=== PATIENT | male | born 1955 | race African-American/Black ===

== ENCOUNTER 2020-11-07 08:10 | Emergency (ER) | payer MEDICARE, MEDICAID ==
[~2020-11-07] VITALS: Ht 180.3 cm; Wt 90.0 kg
[2020-11-07 08:46] LABS: BASOPHILS % 0.8 % (0.0-2.0); EOSINOPHILS % 1.6 % (0.0-5.0); HEMATOCRIT. 38.3 % (42.0-52.0); LYMPHOCYTES % 25.1 % (20.0-50.0); MEAN CORPUSCULAR HEMOGLOBIN 32.8 pg (28.0-32.0); MEAN CORPUSCULAR VOLUME 104.6 fL (80.0-94.0); MEAN PLATELET VOLUME 10.1 fl (7.4-10.4); MONOCYTES % 14.5 % (2.0-8.0); PLATELET 200 x1000/uL (130-400); RED BLOOD CELL COUNT 3.66 mill/uL (4.7-6.1)
[2020-11-07 08:53] LABS: CHLORIDE 113 mEq/L (98-107)
[2020-11-07 08:59] LABS: INR 1.1; PROTHROMBIN TIME 11.8 sec (9.6-11.0)
[2020-11-07 09:00] LABS: C REACTIVE PROTEIN QUANT 5.6 mg/L (0.0-3.0); ETHANOL BLOOD < 10 mg/dL
[2020-11-07 09:02] LABS: CREATINE KINASE 38 IU/L (39-308)
[2020-11-07] MEDS ORDERED: FUROSEMIDE 40MG/4ML VIAL IVP NR (09:30)
[2020-11-07] MEDS ORDERED: DILTIAZEM HCL 5MG/ML 5ML VIAL IV NR (09:30)
[2020-11-07] MEDS ORDERED: ASPIRIN 325MG EC TABLET PO NR (09:30)
[2020-11-07 10:25] LABS: CLARITY URINE CLOUDY (CLEAR); COLOR URINE DARK YELLOW (YELLOW); KETONES URINE TRACE (NEGATIVE); LEUKOCYTE ESTERASE URINE NEGATIVE (NEGATIVE); NITRITE URINE NEGATIVE (NEGATIVE); OCCULT BLOOD URINE TRACE (NEGATIVE); PH URINE 5.5 (4.5-8.0); PROTEIN URINE 4+ (NEGATIVE); SPECIFIC GRAVITY URINE 1.031 (1.005-1.030)
[2020-11-07 10:43] LABS: BG BASE EXCESS -4.4 mmol/L (-2.0-2.0); BG CARBOXYHEMOGLOBIN 0.6 % (0.5-1.5); BG DEOXYHEMOGLOBIN 0.5 % (0.0-5.0); BG FRACTION INSPIRED OXYGEN 32; BG HCO3 ACT 17.9 mmol/L (22.0-26.0); BG METHEMOGLOBIN 0.2 % (0.0-1.5); BG OXYGEN SATURATION 99.5 % (92.0-98.5); BG OXYHEMOGLOBIN 98.7 % (94.0-97.0); BG PCO2 25.6 mmHg (35.0-45.0); BG PH 7.463 (7.350-7.450); BG SAMPLE SITE RIGHT RADIAL; BG TOTAL HEMOGLOBIN 12.4 g/dL (12.0-18.0); BG VENT MODE NASAL CANNULA
[2020-11-07 13:15] VITALS: BP 100/75
== END 2020-11-07 14:39 | disposition short-term general hospital (02) ==
LOC: ER 08:10
DX: E87.70 Fluid overload, unspecified (principal); I11.0 Hypertensive heart disease with heart failure; E87.2 Acidosis; I50.9 Heart failure, unspecified; F17.200 Nicotine dependence, unspecified, uncomplicated; E11.9 Type 2 diabetes mellitus without complications; Z98.890 Other specified postprocedural states; Z20.822 Contact with and (suspected) exposure to COVID-19
CPT/HCPCS: 36415; 36600; 71045; 80053; 80320; 81003; 82375; 82550; 82728; 82805; 82962; 83605; 83615; 83690; 83880; 84145; 84484; 85025; 85384; 85610; 86140; 87040; 87086; 87426; 93005; 96374; 96375; 99291; J1940; J3490; 99285; G0480

== ENCOUNTER 2021-02-16 11:12 | Inpatient (IN) | payer OTHER, MEDICAID ==
[~2021-02-16] VITALS: Ht 170.2 cm; Wt 71.2 kg
[2021-02-16 12:26] LABS: BASOPHILS % 0.9 % (0.0-2.0); EOSINOPHILS % 1.4 % (0.0-5.0); HEMATOCRIT. 42.4 % (42.0-52.0); HEMOGLOBIN. 13.6 g/dL (14.0-18.0); LYMPHOCYTES % 19.7 % (20.0-50.0); MEAN CORPUSCULAR HEMOGLOBIN 33.2 pg (28.0-32.0); MEAN CORPUSCULAR VOLUME 103.6 fL (80.0-94.0); MEAN PLATELET VOLUME 9.9 fl (7.4-10.4); MONOCYTES % 8.5 % (2.0-8.0); NEUTROPHILS % 69.5 % (40.0-76.0); PLATELET 245 x1000/uL (130-400); RED BLOOD CELL COUNT 4.09 mill/uL (4.7-6.1); RED CELL DISTRIBUTION WIDTH 15.7 % (11.6-14.6)
[2021-02-16 12:35] LABS: CHLORIDE 112 mEq/L (98-107)
[2021-02-16] MEDS ORDERED: FUROSEMIDE 40MG/4ML VIAL IVP ONE (13:00)
[2021-02-16] MEDS: ZOLPIDEM TARTRATE 5MG TABLET PO PRN (21:52)
[2021-02-17] MEDS ORDERED: ONDANSETRON HCL 4MG/2ML INJ IV PRN (09:45)
[2021-02-17] MEDS ORDERED: ACETAMINOPHEN 325MG TABLET PO PRN (09:45)
[2021-02-17] MEDS: SPIRONOLACTONE 25MG TABLET PO SCH (10:49)
[2021-02-17] MEDS: METOPROLOL TARTRATE 25MG TABLET PO SCH ×2 (10:50→21:45)
[2021-02-17] MEDS: ENOXAPARIN 80MG/0.8ML SYR SUBCUT SCH ×2 (10:55→21:47)
[2021-02-17] MEDS ORDERED: DEXTROSE 50% WATER 50ML SYRINGE IV PRN (16:45)
[2021-02-17] MEDS ORDERED: DILTIAZEM HCL 5MG/ML 5ML VIAL IV NR (17:00)
[2021-02-17] MEDS ORDERED: FUROSEMIDE 40MG/4ML VIAL IVP SCH (17:00)
[2021-02-17] MEDS ORDERED: METHYLPREDNISOLONE SOD SUCC 40 MG/ML VIAL IV NR (17:00)
[2021-02-17] MEDS ORDERED: IPRATROPIUM BROMIDE (0.02%) 0.5MG/2.5ML NEB HHN PRN (17:00)
[2021-02-17] MEDS: INSULIN LISPRO 100 UNITS/ML SUBCUT SCH ×3 (17:00→21:00)
[2021-02-17] MEDS: FUROSEMIDE 40MG/4ML VIAL IVP SCH (17:10)
[2021-02-17 20:00] VITALS: BP 138/96
[2021-02-17] MEDS: BLOOD SUGAR DIAGNOSTIC STRIP TEST SCH (21:46)
[2021-02-17] MEDS: ZOLPIDEM TARTRATE 5MG TABLET PO PRN (22:32)
[2021-02-17 23:33] VITALS: BP 138/96
[2021-02-18 04:00] VITALS: BP 130/62
[2021-02-18] MEDS: BLOOD SUGAR DIAGNOSTIC STRIP TEST SCH ×2 (06:08→12:18)
[2021-02-18] MEDS: FUROSEMIDE 40MG/4ML VIAL IVP SCH ×2 (06:08→18:00)
[2021-02-18] MEDS: INSULIN LISPRO 100 UNITS/ML SUBCUT SCH ×2 (06:11→12:18)
[2021-02-18 07:20] LABS: INR 1.3; PROTHROMBIN TIME 13.8 sec (9.6-11.0)
[2021-02-18 08:00] VITALS: BP 112/79
[2021-02-18] MEDS: METOPROLOL TARTRATE 25MG TABLET PO SCH ×2 (08:37→20:04)
[2021-02-18] MEDS: SPIRONOLACTONE 25MG TABLET PO SCH (08:37)
[2021-02-18] MEDS: ENOXAPARIN 80MG/0.8ML SYR SUBCUT SCH ×2 (08:37→20:04)
[2021-02-18] MEDS ORDERED: HYDROCODONE/ACETAMINOPHEN 10/325MG TABLET PO PRN (09:00)
[2021-02-18 12:00] VITALS: BP 112/84
[2021-02-18 16:00] VITALS: BP 111/84
[2021-02-18] MEDS ORDERED: IPRA4AER INH (16:35)
[2021-02-18] MEDS ORDERED: LISI-186 MT (16:36)
[2021-02-18] MEDS ORDERED: SPIR25TA6 MT (16:38)
[2021-02-18] MEDS ORDERED: APIX5TAB PO (16:38)
[2021-02-18] MEDS ORDERED: FURO40TA5 MT (16:40)
[2021-02-18] MEDS ORDERED: COLC0.6C3 MT (16:41)
[2021-02-18] MEDS ORDERED: LOPHC2 MT (16:42)
[2021-02-18] MEDS ORDERED: ALLO100T MT (16:48)
[2021-02-18] MEDS ORDERED: VIT1TABL62 PO (16:48)
[2021-02-18] MEDS ORDERED: MET5 MT (16:48)
[2021-02-18] MEDS ORDERED: LIDO35.44 TP (16:49)
[2021-02-18] MEDS ORDERED: SPIRONOLACTONE 5MG/ML 1ML ORAL SYR(NEO) PO SCH (17:00)
[2021-02-18] MEDS ORDERED: METOPROL MT SCH (17:00)
[2021-02-18] MEDS ORDERED: HYDROCHLOROTHIAZIDE MT SCH (17:00)
[2021-02-18] MEDS ORDERED: COLCHICINE MT SCH (17:00)
[2021-02-18] MEDS ORDERED: FUROSEMIDE 40MG TABLET PO SCH (17:00)
[2021-02-18] MEDS: ALLOPURINOL 100 MG TABLET PO SCH (17:15)
[2021-02-18] MEDS: COLCHICINE 0.6MG TABLET PO SCH (17:30)
[2021-02-18] MEDS ORDERED: IPRATROPIUM/ALBUTEROL 0.5-3(2.5)MG/3ML NEB HHN SCH (17:30)
[2021-02-18] MEDS: LISINOPRIL 5MG TABLET PO SCH (17:57)
[2021-02-18 20:00] VITALS: BP 119/77
[2021-02-18] MEDS: ZOLPIDEM TARTRATE 5MG TABLET PO PRN (23:10)
[2021-02-19] VITALS: BP 124/82
[2021-02-19 04:00] VITALS: BP 123/76
[2021-02-19] MEDS: FUROSEMIDE 40MG/4ML VIAL IVP SCH ×2 (05:41→17:48)
[2021-02-19 08:00] VITALS: BP 111/74
[2021-02-19] MEDS: COLCHICINE 0.6MG TABLET PO SCH (09:14)
[2021-02-19] MEDS: ENOXAPARIN 80MG/0.8ML SYR SUBCUT SCH (09:14)
[2021-02-19] MEDS: LISINOPRIL 5MG TABLET PO SCH (09:15)
[2021-02-19] MEDS: METOPROLOL TARTRATE 25MG TABLET PO SCH ×2 (09:15→20:28)
[2021-02-19] MEDS: ALLOPURINOL 100 MG TABLET PO SCH (09:15)
[2021-02-19] MEDS: SPIRONOLACTONE 25MG TABLET PO SCH (09:16)
[2021-02-19] MEDS ORDERED: NALOXONE HCL 0.4MG/ML VIAL IV PRN (11:45)
[2021-02-19 12:00] VITALS: BP 107/78
[2021-02-19 12:48] LABS: CHLORIDE 104 mEq/L (98-107)
[2021-02-19 16:00] VITALS: BP 109/79
[2021-02-19] MEDS: APIXABAN 5 MG TABLET PO SCH (17:48)
[2021-02-19 20:00] VITALS: BP 112/64
[2021-02-19] MEDS: ZOLPIDEM TARTRATE 5MG TABLET PO PRN (22:17)
[2021-02-20] VITALS: BP 105/74
[2021-02-20 04:00] VITALS: BP 91/57
[2021-02-20] MEDS: FUROSEMIDE 40MG/4ML VIAL IVP SCH ×2 (06:56→18:00)
[2021-02-20 08:00] VITALS: BP 115/79
[2021-02-20] MEDS: METOPROLOL TARTRATE 25MG TABLET PO SCH (11:55)
[2021-02-20] MEDS: APIXABAN 5 MG TABLET PO SCH ×2 (11:55→17:00)
[2021-02-20] MEDS: COLCHICINE 0.6MG TABLET PO SCH (11:55)
[2021-02-20] MEDS: ALLOPURINOL 100 MG TABLET PO SCH (11:55)
[2021-02-20] MEDS: SPIRONOLACTONE 25MG TABLET PO SCH (11:56)
[2021-02-20] MEDS: LISINOPRIL 5MG TABLET PO SCH (11:56)
[2021-02-20 12:00] VITALS: BP 115/73
[2021-02-20 16:00] VITALS: BP 124/87
[2021-02-20 17:25] VITALS: BP 115/73
== END 2021-02-20 20:34 | disposition home or self-care (01) | DRG 291 ==
LOC: ER 12:42 → MICUSO 14:10 → 8WST 02-17 07:30 → MICUSO 02-17 08:19 → 8WST 02-17 17:24
PROVIDERS: ADMIT Internal Medicine; ATTEND Internal Medicine
DX: I11.0 Hypertensive heart disease with heart failure (principal); J96.01 Acute respiratory failure with hypoxia; C90.00 Multiple myeloma not having achieved remission; E44.1 Mild protein-calorie malnutrition; D64.9 Anemia, unspecified; E11.9 Type 2 diabetes mellitus without complications; E87.8 Other disorders of electrolyte and fluid balance, not elsewhere classified; Z96.649 Presence of unspecified artificial hip joint; I50.82 Biventricular heart failure; Z20.822 Contact with and (suspected) exposure to COVID-19; I27.20 Pulmonary hypertension, unspecified; R07.89 Other chest pain; I50.23 Acute on chronic systolic (congestive) heart failure; F17.210 Nicotine dependence, cigarettes, uncomplicated; I16.0 Hypertensive urgency; I48.91 Unspecified atrial fibrillation; Z68.24 Body mass index [BMI] 24.0-24.9, adult; Z82.49 Family history of ischemic heart disease and other diseases of the circulatory system; Z83.3 Family history of diabetes mellitus
CPT/HCPCS: 36415; 71045; 80048; 80053; 82962; 83036; 83880; 84443; 84484; 85025; 87426; 93005; 93306; 97161; 99285; C1893; J1650; J1815; J1940; J2920; J3490

== ENCOUNTER 2021-03-20 06:04 | Inpatient (IN) | payer OTHER, MEDICAID ==
[~2021-03-20] VITALS: Ht 170.2 cm; Wt 66.7 kg
[~2021-03-20 06:04] MED LIST: ALLO100T MT; APIX5TAB PO; COLC0.6C3 MT; FURO40TA5 MT; IPRA4AER INH; LIDO35.44 TP; LISI-186 MT; LOPHC2 MT; METH-817 MT; SPIR25TA6 MT; VIT1TABL62 PO
[2021-03-20] MEDS ORDERED: NITROGLYCERIN OINT 1GM/INCH UDPKT TD ONE (06:30)
[2021-03-20] MEDS ORDERED: FUROSEMIDE 40MG/4ML VIAL IV ONE (06:30)
[2021-03-20] MEDS ORDERED: ASPIRIN 81MG TABLET PO ONE (06:30)
[2021-03-20 07:33] LABS: EOSINOPHILS % 0.8 % (0.0-5.0); HEMATOCRIT. 42.5 % (42.0-52.0); HEMOGLOBIN. 13.4 g/dL (14.0-18.0); LYMPHOCYTES % 18.3 % (20.0-50.0); MEAN CORPUSCULAR HEMOGLOBIN 32.6 pg (28.0-32.0); MEAN CORPUSCULAR VOLUME 103.1 fL (80.0-94.0); MEAN PLATELET VOLUME 9.8 fl (7.4-10.4); MONOCYTES % 8.7 % (2.0-8.0); NEUTROPHILS % 71.2 % (40.0-76.0); PLATELET 233 x1000/uL (130-400); RED BLOOD CELL COUNT 4.12 mill/uL (4.7-6.1); RED CELL DISTRIBUTION WIDTH 17.2 % (11.6-14.6)
[2021-03-20 07:36] LABS: CHLORIDE 111 mEq/L (98-107)
[2021-03-20 07:41] LABS: INR 1.6; PARTIAL THROMBOPLASTIN TIME 28.8 sec (23.4-31.0)
[2021-03-20] MEDS ORDERED: ONDANSETRON HCL 4MG/2ML INJ IV PRN (09:45)
[2021-03-20] MEDS ORDERED: ACETAMINOPHEN 325MG TABLET PO PRN (09:45)
[2021-03-20 10:55] LABS: *BENZODIAZEPINES SCREEN URINE NEGATIVE (NEGATIVE); *COCAINE SCREEN URINE NEGATIVE (NEGATIVE)
[2021-03-20 10:56] LABS: *AMPHETAMINES SCREEN URINE NEGATIVE (NEGATIVE); *BARBITURATES SCREEN URINE NEGATIVE (NEGATIVE); CANNABINOID URINE SCREEN PRESUMTIVE POSITIVE (NEGATIVE); METHADONE URINE SCREEN NEGATIVE (NEGATIVE); OPIATES URINE SCREEN NEGATIVE (NEGATIVE); PHENCYCLIDINE URINE SCREEN NEGATIVE (NEGATIVE)
[2021-03-20] MEDS ORDERED: ENOXAPARIN 80MG/0.8ML SYR SUBCUT SCH (11:30)
[2021-03-20] MEDS: FUROSEMIDE 40MG/4ML VIAL IVP SCH (17:46)
[2021-03-20] MEDS ORDERED: CARVEDILOL 12.5MG TABLET PO SCH (20:00)
[2021-03-20] MEDS: LOSARTAN POTASSIUM 50 MG TABLET PO SCH (20:58)
[2021-03-20 22:30] VITALS: BP 143/80
[2021-03-20] MEDS: ENOXAPARIN 80MG/0.8ML SYR SUBCUT SCH (22:53)
[2021-03-21] VITALS (7 sets, daily range): BP systolic 91–115; BP diastolic 55–82
[2021-03-21] MEDS: ZOLPIDEM TARTRATE 5MG TABLET PO PRN ×2 (00:15→23:15)
[2021-03-21] MEDS ORDERED: CARV6.2548 PO (03:40)
[2021-03-21 08:17] LABS: CHLORIDE 110 mEq/L (98-107)
[2021-03-21] MEDS: CARVEDILOL 12.5MG TABLET PO SCH ×2 (08:52→21:09)
[2021-03-21] MEDS: LOSARTAN POTASSIUM 50 MG TABLET PO SCH (08:52)
[2021-03-21] MEDS: ENOXAPARIN 80MG/0.8ML SYR SUBCUT SCH ×2 (08:53→21:09)
[2021-03-21] MEDS: FUROSEMIDE 40MG/4ML VIAL IVP SCH ×2 (08:53→16:26)
[2021-03-22] VITALS (7 sets, daily range): BP systolic 98–119; BP diastolic 62–78
[2021-03-22 07:08] LABS: CHLORIDE 107 mEq/L (98-107)
[2021-03-22] MEDS: CARVEDILOL 12.5MG TABLET PO SCH ×2 (08:57→20:08)
[2021-03-22] MEDS: LOSARTAN POTASSIUM 50 MG TABLET PO SCH (08:57)
[2021-03-22] MEDS: FUROSEMIDE 40MG/4ML VIAL IVP SCH ×2 (08:58→17:00)
[2021-03-22] MEDS: ENOXAPARIN 80MG/0.8ML SYR SUBCUT SCH ×2 (09:00→20:08)
[2021-03-22] MEDS ORDERED: FUROSEMIDE 40MG/4ML VIAL IVP NR (12:45)
[2021-03-22] MEDS: ZOLPIDEM TARTRATE 5MG TABLET PO PRN (20:09)
[2021-03-23] VITALS: BP 96/66
[2021-03-23 04:00] VITALS: BP 90/66
[2021-03-23 08:00] VITALS: BP 106/76
[2021-03-23] MEDS ORDERED: HYDROCODONE/ACETAMINOPHEN 5/325MG TABLET PO PRN (08:15)
[2021-03-23] MEDS: LOSARTAN POTASSIUM 50 MG TABLET PO SCH (08:35)
[2021-03-23] MEDS: CARVEDILOL 12.5MG TABLET PO SCH ×2 (08:35→20:25)
[2021-03-23] MEDS: PANTOPRAZOLE SODIUM 40 MG/VIAL IV SCH (09:30)
[2021-03-23] MEDS: FUROSEMIDE 40MG/4ML VIAL IVP SCH ×2 (09:30→18:44)
[2021-03-23] MEDS: ENOXAPARIN 80MG/0.8ML SYR SUBCUT SCH ×2 (09:30→20:24)
[2021-03-23 12:00] VITALS: BP 103/76
[2021-03-23] MEDS ORDERED: CARVEDILOL 12.5MG TABLET PO SCH (13:30)
[2021-03-23] MEDS: SPIRONOLACTONE 25MG TABLET PO SCH (15:43)
[2021-03-23 16:00] VITALS: BP 116/75
[2021-03-23 20:00] VITALS: BP 110/68
[2021-03-23 20:43] LABS: BASOPHILS % 0.8 % (0.0-2.0); EOSINOPHILS % 0.9 % (0.0-5.0); HEMATOCRIT. 37.9 % (42.0-52.0); HEMOGLOBIN. 12.6 g/dL (14.0-18.0); LYMPHOCYTES % 13.4 % (20.0-50.0); MEAN CORPUSCULAR HEMOGLOBIN 32.9 pg (28.0-32.0); MEAN CORPUSCULAR VOLUME 99.3 fL (80.0-94.0); MONOCYTES % 9.5 % (2.0-8.0); NEUTROPHILS % 75.4 % (40.0-76.0); PLATELET 235 x1000/uL (130-400); RED BLOOD CELL COUNT 3.81 mill/uL (4.7-6.1); RED CELL DISTRIBUTION WIDTH 16.5 % (11.6-14.6)
[2021-03-23 20:59] LABS: CHLORIDE 103 mEq/L (98-107)
[2021-03-23] MEDS: ZOLPIDEM TARTRATE 5MG TABLET PO PRN (22:58)
[2021-03-24] VITALS: BP 98/64
[2021-03-24 04:00] VITALS: BP 98/66
[2021-03-24] MEDS: FUROSEMIDE 40MG/4ML VIAL IVP SCH ×2 (05:44→17:04)
[2021-03-24 07:46] VITALS: BP 99/68
[2021-03-24] MEDS ORDERED: POTASSIUM CHLORIDE 20MEQ TABLET SR PO SCH (08:30)
[2021-03-24] MEDS: SPIRONOLACTONE 25MG TABLET PO SCH (08:35)
[2021-03-24] MEDS: CARVEDILOL 12.5MG TABLET PO SCH (08:35)
[2021-03-24] MEDS: ENOXAPARIN 80MG/0.8ML SYR SUBCUT SCH (09:18)
[2021-03-24] MEDS: PANTOPRAZOLE SODIUM 40 MG/VIAL IV SCH (09:49)
[2021-03-24 12:00] VITALS: BP 113/79
[2021-03-24 16:00] VITALS: BP 96/73
[2021-03-24] MEDS ORDERED: FUROSEMIDE 100MG/10ML VIAL IVP NR (17:15)
[2021-03-24] MEDS ORDERED: FURO40TA5 PO (19:41)
[2021-03-24 19:42] VITALS: BP 105/62
[2021-03-25] MEDS ORDERED: FAMOTIDINE 20MG TABLET PO SCH (09:00)
== END 2021-03-24 20:55 | disposition home or self-care (01) | DRG 291 ==
LOC: ER 06:04 → 7EST 08:11 → EDBEDREQSVC 15:06 → ENRESERV 20:32
PROVIDERS: ADMIT Internal Medicine; ATTEND Internal Medicine
DX: I11.0 Hypertensive heart disease with heart failure (principal); J96.01 Acute respiratory failure with hypoxia; N17.0 Acute kidney failure with tubular necrosis; C96.9 Malignant neoplasm of lymphoid, hematopoietic and related tissue, unspecified; I48.92 Unspecified atrial flutter; I50.23 Acute on chronic systolic (congestive) heart failure; I16.0 Hypertensive urgency; I42.9 Cardiomyopathy, unspecified; I48.91 Unspecified atrial fibrillation; D64.9 Anemia, unspecified; I50.82 Biventricular heart failure; E87.5 Hyperkalemia; E11.9 Type 2 diabetes mellitus without complications; F12.90 Cannabis use, unspecified, uncomplicated; Z20.822 Contact with and (suspected) exposure to COVID-19; Z83.3 Family history of diabetes mellitus; Z82.49 Family history of ischemic heart disease and other diseases of the circulatory system; Z92.21 Personal history of antineoplastic chemotherapy; Z79.899 Other long term (current) drug therapy
CPT/HCPCS: 36415; 71045; 76700; 80048; 80053; 80305; 83880; 84484; 85025; 87426; 93005; 99285; C9113; J1650; J1940